=== PATIENT | male | born 1980 | race Caucasian/White ===

== ENCOUNTER 2020-10-21 18:23 | Emergency (ER) | payer OTHER ==
[~2020-10-21] VITALS: Ht 160 cm; Wt 54.4 kg
[2020-10-21] MEDS ORDERED: TETANUS/DIPHTHERIA TOX ADULT 0.5 ML SYR IM ONE (18:45)
[2020-10-21] MEDS ORDERED: TETANUS/DIPHTHERIA TOX ADULT 0.5 ML SYR ONE (18:50)
[2020-10-21] MEDS ORDERED: IBUPROFEN IB200 MG PO (18:59)
[2020-10-21] MEDS ORDERED: ACETAMINOPHEN500 MG PO (18:59)
[2020-10-21] MEDS ORDERED: AUGMENTIN 875-1 EACH PO (18:59)
[2020-10-21] MEDS ORDERED: LIDOCAINE HCL 2% LOCAL INJ 5 ML SDV VIAL INJ ONE (19:11)
[2020-10-21] MEDS ORDERED: AMOXICILLIN/CLAVULANATE K 875 MG TAB PO STA (19:37)
[2020-10-21] MEDS ORDERED: AMOXICILLIN/CLAVULANATE K 875 MG TAB ONE (19:45)
== END 2020-10-21 19:30 | disposition home or self-care (01) ==
LOC: FSED 18:46
DX: S01.21XA Laceration without foreign body of nose, initial encounter (principal); W01.0XXA Fall on same level from slipping, tripping and stumbling without subsequent striking against object, initial encounter; W54.0XXA Bitten by dog, initial encounter; Y92.008 Other place in unspecified non-institutional (private) residence as the place of occurrence of the external cause; S01.511A Laceration without foreign body of lip, initial encounter
CPT/HCPCS: 12013; 90471; 90714; 99283; J2001

== ENCOUNTER 2021-02-25 17:52 | Emergency (ER) | payer OTHER ==
[~2021-02-25] VITALS: Ht 160 cm; Wt 54.4 kg
[~2021-02-25 17:52] MED LIST: ACETAMINOPHEN500 MG PO; AUGMENTIN 875-1 EACH PO; IBUPROFEN IB200 MG PO
[2021-02-25] MEDS ORDERED: AUGMENTIN 875-1 EACH PO (18:09)
[2021-02-25] MEDS ORDERED: IBUPROFEN IB200 MG PO (18:09)
== END 2021-02-25 18:11 | disposition home or self-care (01) ==
LOC: FSED 18:00
DX: K08.89 Other specified disorders of teeth and supporting structures (principal); K02.9 Dental caries, unspecified
CPT/HCPCS: 99282